=== PATIENT | male | born 1985 | race Hispanic/Latino ===

== ENCOUNTER 2019-09-20 01:55 | Emergency (ER) | payer SELFPAY ==
[2019-09-20] MEDS ORDERED: HYDROCODONE/ACETAMINOPHEN 10/325 MG TAB ONE (03:14)
[2019-09-20] MEDS ORDERED: ONDANSETRON ODT 4 MG TAB ONE (03:14)
== END 2019-09-20 03:58 | disposition home or self-care (01) ==
LOC: EEVIPCON 01:55 → EDH 01:55
DX: S92.001A Unspecified fracture of right calcaneus, initial encounter for closed fracture (principal); W22.8XXA Striking against or struck by other objects, initial encounter; Y93.89 Activity, other specified; Y92.89 Other specified places as the place of occurrence of the external cause; Y99.8 Other external cause status
CPT/HCPCS: 29515; 73610

== ENCOUNTER 2019-09-21 02:45 | Emergency (ER) | payer OTHER ==
[2019-09-21] MEDS ORDERED: HYDROCODONE/ACETAMINOPHEN 5/325 MG TAB ONE (03:13)
== END 2019-09-21 03:30 | disposition home or self-care (01) ==
LOC: EDH 02:45
DX: S92.001D Unspecified fracture of right calcaneus, subsequent encounter for fracture with routine healing (principal); X58.XXXD Exposure to other specified factors, subsequent encounter
CPT/HCPCS: 29515